=== PATIENT | female | born 1965 | race Two or more races ===

== ENCOUNTER 2019-04-26 14:03 | Outpatient (CLI) | payer OTHER | END 2019-04-27 14:07 | disposition home or self-care (01) | LOC: MAMO-SONO 14:03 | DX: N84.0 Polyp of corpus uteri (principal); D25.9 Leiomyoma of uterus, unspecified; Z12.31 Encounter for screening mammogram for malignant neoplasm of breast; N63.10 Unspecified lump in the right breast, unspecified quadrant; N63.20 Unspecified lump in the left breast, unspecified quadrant; N64.4 Mastodynia; N60.11 Diffuse cystic mastopathy of right breast ==

== ENCOUNTER → 2019-06-02 | Outpatient (CLI) | payer OTHER | END | disposition home or self-care (01) | LOC: SONOGRAMA 09:15 | DX: N84.0 Polyp of corpus uteri (principal); D25.9 Leiomyoma of uterus, unspecified ==

== ENCOUNTER 2020-07-11 09:22 | Outpatient (CLI) | payer OTHER | END 2020-07-11 09:46 | disposition home or self-care (01) | LOC: MAMO-SONO 09:22 | PROVIDERS: ATTEND Obstetrics & Gynecology Maternal & Fetal Medicine | DX: Z12.31 Encounter for screening mammogram for malignant neoplasm of breast (principal); N63.10 Unspecified lump in the right breast, unspecified quadrant; N63.20 Unspecified lump in the left breast, unspecified quadrant; N64.4 Mastodynia; N60.11 Diffuse cystic mastopathy of right breast; R91.8 Other nonspecific abnormal finding of lung field ==